=== PATIENT | female | born 1930 | race Caucasian/White ===

== ENCOUNTER 2017-08-20 11:08 | Day surgery (SDC) | payer OTHER, BC ==
[2017-08-15 13:46] VITALS: BMI 35.4
[2017-08-20 12:00] LABS: INR 1.11 (0.82-1.09); PROTHROMBIN TIME (PATIENT) 12.2 SEC (9.98-11.88)
[2017-08-20 12:03] LABS: ACTIVATED PTT 30.5 SECONDS (26.9-34.4)
--- NOTE | 2017-08-20 12:53 | HP ---
History & Physical Update - History History: No Change - Physical Physical: No Change - Assessment Assessment: No Change - Plan Plan: No Change
[2017-08-20] MEDS ORDERED: ACETAMINOPHEN 1000 MG/100 ML VIAL (NON FORMULARY) IVPB ONE (12:54)
[2017-08-20] MEDS ORDERED: DEXTROSE 5%-0.45% SALINE 1,000 ML IV SCH (13:00)
[2017-08-20] MEDS ORDERED: ONDANSETRON 4 MG/2 ML VIAL IVPUSH PRN (13:41)
[2017-08-20] MEDS ORDERED: MIDAZOLAM HCL 2 MG/2 ML SINGLE DOSE VIAL ONE ×2 (14:06→14:50)
[2017-08-20] MEDS ORDERED: CLINDAMYCIN 600 MG PREMIX BAG IVPB ONE (14:15)
[2017-08-20] MEDS ORDERED: CLINDAMYCIN PHOSPHATE 600 MG/4 ML VIAL ONE (14:26)
[2017-08-20] MEDS ORDERED: PROPOFOL 20 ML ONE (14:32)
[2017-08-20] MEDS ORDERED: LIDOCAINE HCL 1%, 10 MG/ML (20ML VIAL) INF ONE ×2 (14:47)
[2017-08-20] MEDS ORDERED: ACETAMINOPHEN INJECTION 100 ML IVPB ONE (15:41)
[2017-08-20 16:27] VITALS: TEMP 98.1
[2017-08-20 17:53] VITALS: BP 144/93; PULSE 98
--- NOTE | 2017-08-21 11:48 | PATH ---
Surgical Pathology Report Patient Name: KAYLI COLE [facility]. Rec. #: [id number] /Age/Gender: 1930 (Age: 87) / F Account: [id number] Location: [facility] SURGICAL Taken: 08/20/2017 Received: 08/21/2017 Reported: 08/21/2017 Physicians: Michele Sorensen M.D. 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 Electronically Signed Anant Jose M.D. Gross Description Received dry labeled "old InterStim lead and battery" and is a 4.8 x 4.0 x 0.8 cm metallic and plastic medical library assistant designated [employer] InterStim II 3058 serial number [id number]. Also present is a 24 cm long x 0.1 cm in diameter portion of metallic wire partially covered by plastic. This is for gross identification only. [facility]/08/21/2017 [facility]/08/21/2017
--- NOTE | 2017-08-21 13:32 | OP ---
DATE OF OPERATION: 08/20/2017 PREOPERATIVE DIAGNOSES: 1. Urinary urge incontinence. 2. Nonfunctioning, malpositioned InterStim implant. POSTOPERATIVE DIAGNOSES: 1. Urinary urge incontinence. 2. Nonfunctioning, malpositioned InterStim implant. PROCEDURE: Removal and replacement of InterStim lead and battery. ANESTHESIA: IV sedation with local. SURGEON: Michele Sorensen MD ESTIMATED BLOOD LOSS: Minimal. SPECIMEN: Old lead and battery. FINDING: New lead in the S3 foramen with proper response at low amplitude. 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 She has a previously implanted implant by another physician years ago, which is no longer effective. X-rays revealed that the lead is not in the correct position. She comes to the OR for replacement. DESCRIPTION OF OPERATION: The patient was brought to the OR, placed on the table in the prone position. All pressure points were protected. Patient was given IV sedation and IV antibiotics. The back was prepped and draped sterilely. Using fluoroscopy, the old lead and battery were identified. Incision was made over the insertion point of the previous lead, and it was removed in total. The old battery pocket was similarly opened, and the battery was removed in total. The incisions were then irrigated with bacitracin and water. Using a finder needle into the right S3 foramen, was found, and the needle was simulated. S3 response of toe deflection and anal pebbles at low amplitude was noted. Using Seldinger technique, a quadripole lead was placed into the S3 foramen, retested with good response at all 4 leads at low amplitude. This lead was then tunneled to the previous battery pocket. The lead was connected to the battery, and the battery was placed into the old pocket. Impedances were checked and noted to be normal. x-ray also appeared to be good. Incisions were closed in 2 layers using 3-0 and 4-0 suture. Wounds were then dressed. Patient was woken up. MICHELE SORENSEN M.D. [id number]
== END 2017-08-20 17:05 | disposition home or self-care (01) ==
LOC: JASU-SURG 11:08
PROVIDERS: ATTEND Urology
PROC: 0JH70BZ Insertion of Single Array Stimulator Generator into Back Subcutaneous Tissue and Fascia, Open Approach (ICD-10-PCS; 2017-08-20)
PROC: 0JPT0MZ Removal of Stimulator Generator from Trunk Subcutaneous Tissue and Fascia, Open Approach (ICD-10-PCS; 2017-08-20)
PROC: 0JH70BZ Insertion of Single Array Stimulator Generator into Back Subcutaneous Tissue and Fascia, Open Approach (ICD-10-PCS; 2017-08-20)
PROC: 01PY0MZ Removal of Neurostimulator Lead from Peripheral Nerve, Open Approach (ICD-10-PCS; 2017-08-20)
PROC: 01HY0MZ Insertion of Neurostimulator Lead into Peripheral Nerve, Open Approach (ICD-10-PCS; 2017-08-20)
PROC: 0JPT0MZ Removal of Stimulator Generator from Trunk Subcutaneous Tissue and Fascia, Open Approach (ICD-10-PCS; principal; 2017-08-20 13:00)
DX: T85.113A Breakdown (mechanical) of implanted electronic neurostimulator, generator, initial encounter (principal); N39.41 Urge incontinence
CPT/HCPCS: 64581; 64590; C1767; 36415; 76000-TC; 85610; 85730; 88300-TC; 94760